=== PATIENT | male | born 1990 | race Caucasian/White ===

== ENCOUNTER 2018-10-03 16:39 | Emergency (ER) | payer SELFPAY ==
[~2018-10-03] VITALS: Ht 172.7 cm; Wt 77.7 kg
[2018-10-03 16:49] VITALS: Ht 172.7 cm; Wt 77.7 kg
--- NOTE | 2018-10-03 19:49 | ERD ---
ER Documentation Chief Complaint Chief Complaint right ankle pain x1day, some swelling, no deformity noted HPI 28-year-old male presents with complaint of right ankle pain incurred today af ter hiking. States that he was walking and he twisted his ankle on felt a pop. States that his been having some difficulty in walking on that ankle since then. States there is pain when walking as well but he has been able to walk. In addition he states that a few weeks ago he twisted his other ankle and it has been hurting him more lately and he requests an x-ray. Denies any treatments. Denies numbness, tingling, pallor, cyanosis. Denies medical problems denies allergies. ROS All systems reviewed and are negative except as per history of present illness. Medications Home Meds Active Scripts Hydrocodone/Acetaminophen (Perry 5-325 Tablet) 1 Each Tablet, 1 TAB PO Q6H PRN for PAIN, #10 TAB Prov:ERICKA BEGRMAN 10/03/18 Ibuprofen* (Motrin*) 600 Mg Tab, 600 MG PO Q6 for pain, #30 TAB Prov:ERICKA BERGMAN 10/03/18 Allergies Allergies: Coded Allergies: No Known Allergy (Unverified , 10/03/18) PMhx/Soc Medical and Surgical Hx: pt denies Surgical Hx Hx Miscellaneous Medical Probl: Yes (kidney stones) Hx Alcohol Use: Yes (sociallty) Hx Substance Use: Yes (marijuana) Hx Tobacco Use: No Smoking Status: Current every day smoker FmHx Family History: No diabetes, No coronary disease, No other Physical Exam Vitals Vital Signs Date Temp Pulse Resp B/P (MAP) Pulse Ox O2 O2 Flow FiO2 Time Delivery Rate 10/03/18 98.5 88 18 115/68 97 16:49 (84) Physical Exam Const: No acute distress Head: Atraumatic Eyes: Normal Conjunctiva ENT: Normal External Ears, Nose and Mouth. Neck: Full range of motion. No meningismus. Resp: Clear to auscultation bilaterally Cardio: Regular rate and rhythm, no murmurs Abd: Soft, non tender, non distended. Normal bowel sounds Skin: No petechiae or rashes Back: No midline or flank tenderness Right ankle: Tender to palpation over the anterior and posterior lateral malleolus. Impaired range of motion. There is no edema, erythema, ecchymosis, or huey deformity noted. Overlying skin is intact. Compartments are soft and warm. There is no pallor or cyanosis. Range of motion, distal pulses, and distal sensation is intact. There is normal cap refill. Left ankle: Tenderness to palpation over the posterior lateral malleolus. There is no edema, erythema, ecchymosis, or huey deformity noted. Overlying skin is intact. Compartments are soft and warm. There is no pallor or cyanosis. Range of motion, distal pulses, and distal sensation is intact. There is normal cap refill. Neur: Awake and alert Psych: Normal Mood and Affect Procedures/MDM DIAGNOSTIC IMAGING REPORT Patient: TICO PARIKH : 1990 Age: 28 Sex: M MR #: [id number] DOS: 10/03/181902 Ordering MD: ERICKA BERGMAN Location: [facility] Room/Bed: PROCEDURE: XR left Ankle. CLINICAL INDICATION: Pain status post trauma TECHNIQUE: AP, oblique, and lateral views of the left ankle were performed. COMPARISON: None. FINDINGS: The osseous structures are intact with no evidence of fracture or subluxation. The ankle mortise is well maintained. The soft tissues are normal in appearance. A small calcaneal spur at the Achilles tendon insertion is present. IMPRESSION: 1. No acute fractures or dislocations. 2. Small calcaneal spur as noted RPTAT: HDC .Aleyda Jackson MD, Date Time Electronically viewed and signed by .Aleyda Jackson MD, MD on 10/03/2018 19:41 .C/ CC: ERICKA BERGMAN [phone] DIAGNOSTIC IMAGING REPORT Patient: TICO PARIKH : 1990 Age: 28 Sex: M MR #: [id number] DOS: 10/03/181902 Ordering MD: ERICKA BERGMAN Location: [facility] Room/Bed: PROCEDURE: XR right Ankle. CLINICAL INDICATION: Right ankle pain status post trauma TECHNIQUE: AP, oblique, and lateral views of the right ankle were performed. COMPARISON: None available FINDINGS: Soft tissue swelling about the right ankle is noted and a small ankle effusion may be present. No definite evidence for acute fractures or dislocations are noted. The ankle mortise is normal. No radiodense foreign bodies are present . IMPRESSION: 1. No acute fractures or dislocations 2. The soft tissue swelling and possible right ankle effusion. Consider MR as clinically indicated. RPTAT: HDC .Aleyda Jackson MD, MD Date Time Electronically viewed and signed by .Aleyda Jackson MD, MD on 10/03/2018 19:35 .C/ CC: ERICKA BERGMAN [phone] MDM: X-rays ordered and there is no evidence of fracture. Patient most likely has ankle sprain of the left ankle. Patient was put in an Marc bandage and told to use ice and ibuprofen as necessary. Splint Assessment: Neurovascularly intact post splint placement with good fit. I have low suspicion for neurovascular compromise, compartment syndrome, fracture, osteomyelitis, septic joint, or other emergent condition. Patient advised to follow-up with orthopedist. Patient discharged with strict ER precautions. Patient advised to follow up with PMD. All questions answered at discharge. Departure Diagnosis: Primary Impression: Ankle injury Encounter type: initial encounter Laterality: right Qualified Codes: S99.911A - Unspecified injury of right ankle, initial encounter Additional Impression: Ankle pain Chronicity: acute Laterality: bilateral Qualified Codes: M25.571 - Pain in right ankle and joints of right foot; M25.572 - Pain in left ankle and joints of left foot Condition: Stable ERICKA BERGMAN Oct 03, 2018 19:49
[2018-10-03] MEDS ORDERED: HYDR-4011 PO (19:50)
[2018-10-03] MEDS ORDERED: IBUP-1542 PO (19:50)
[2018-10-03 20:08] VITALS: BP 117/70; PULSE 77; RESP 18
== END 2018-10-03 20:09 | disposition home or self-care (01) ==
LOC: FTE 16:39
DX: S99.911A Unspecified injury of right ankle, initial encounter (principal); S99.912A Unspecified injury of left ankle, initial encounter; F17.210 Nicotine dependence, cigarettes, uncomplicated; X50.1XXA Overexertion from prolonged static or awkward postures, initial encounter; Y92.9 Unspecified place or not applicable